=== PATIENT | male | born 1980 | race Caucasian/White ===

== ENCOUNTER 2019-03-02 02:08 | Emergency (ER) | payer OTHER ==
[2019-03-02] MEDS: ONDANSETRON (ODT) 4 MG TAB ODT (04:42)
[2019-03-02] MEDS: HYDROCODONE/APAP (5/325) TAB PO (04:43)
[2019-03-02] MEDS: LORAZEPAM 0.5 MG TAB PO (05:37)
== END 2019-03-02 06:46 | disposition home or self-care (01) ==
LOC: FTE 02:08
DX: S69.91XA Unspecified injury of right wrist, hand and finger(s), initial encounter (principal); S19.9XXA Unspecified injury of neck, initial encounter; S99.921A Unspecified injury of right foot, initial encounter; Y08.89XA Assault by other specified means, initial encounter
CPT/HCPCS: 71100; 73110-RT; 99284-25